=== PATIENT | female | born 1945 | race African-American/Black ===

== ENCOUNTER 2016-12-22 12:47 | Emergency (ER) | payer MEDICARE ==
[~2016-12-22] VITALS: Ht 165.1 cm; Wt 60.0 kg
[~2016-12-22 12:47] MED LIST: ROBITUSSIN DM 105 ML PO; VENTOLIN0.09 MG IH; ZITHROMAX Z PA250 MG PO; ZYRTEC 10MG10 MG PO
[2016-12-22 12:53] VITALS: TEMP 97.6
[2016-12-22 13:52] LABS: BASO # 0.1 (0.0-0.2); BASO % 1.6 % (0.0-2.0); EOS # 0.1 (0.0-0.7); EOS % 1.1 % (0-4.0); GRAN % 64.3 % (42.2-75.2); LYMPH # 1.7 (1.2-3.4); LYMPH % 26.9 % (20.0-51.0); MEAN CELL VOLUME 86 fl (80.0-100.0); MEAN CORPUSCULAR HGB CONC 32 g/dl (33.0-37.0); MEAN PLATELET VOLUME 10.4 fl (7.4-10.4); MONO # 0.4 (0.1-0.6); MONO % 5.8 % (1.7-9.3); PLATELET COUNT 289 K/mm3 (130-400); RED BLOOD COUNT 4.02 M/mm3 (4.10-5.30); REDCELL DISTRIBUTION WIDTH-CV 13.5 % (11.5-14.5); WHITE BLOOD COUNT 6.2 K/mm3 (4.8-10.8)
[2016-12-22 13:53] LABS: HEMATOCRIT 34.6 % (37.0-47.0); MEAN CORPUSCULAR HEMOGLOBIN 27 pg (27.0-31.0)
[2016-12-22 13:55] LABS: INR 1.2 (0.8-3.0); PROTHROMBIN TIME 13.7 SECONDS (9.7-12.8)
[2016-12-22 14:03] LABS: ADJUSTED CALCIUM 11.1 mg/dL (8.4-10.2); ALBUMIN 4.1 gm/dL (3.5-5.0); BILIRUBIN,TOTAL 0.8 mg/dL (0.0-1.0); CALCIUM 11.2 mg/dL (8.4-10.2); CREATININE, serum 0.97 mg/dL (0.52-1.25); POTASSIUM 4.6 mmol/L (3.4-5.0)
[2016-12-22 14:14] LABS: TROPONIN-I 0.025 ng/mL (0.000-0.034)
[2016-12-22 14:16] LABS: PH 7 (5-8); SQUAMOUS EPITHELIAL 0-2 /hpf; URINE APPEARANCE Clear; URINE BACTERIA None Seen /hpf; URINE BILIRUBIN Negative (NEGATIVE); URINE BLOOD Negative (NEGATIVE); URINE COLOR Yellow; URINE GLUCOSE Negative (NEGATIVE); URINE KETONE Trace (NEGATIVE); URINE UROBILINOGEN >=4.0 mg/dL (NEGATIVE); URINE WBC 0-2 /hpf
[2016-12-22] MEDS ORDERED: PROAIR HFA0.09 MG/AC IH (16:54)
[2016-12-22] MEDS ORDERED: ASPIRIN 32325 MG/TAB PO (16:54)
[2016-12-22] MEDS ORDERED: EPA FISH OIL1 SGL PO (16:55)
[2016-12-22] MEDS ORDERED: ZYRTEC 10MG10 MG PO (16:55)
[2016-12-22] MEDS ORDERED: FLONASEALLERGY NS (16:56)
[2016-12-22] MEDS ORDERED: SYNTHROID 0.0.025 MG PO (16:58)
[2016-12-22] MEDS ORDERED: MULTI VITAMINS1 TAB PO (16:59)
[2016-12-22] MEDS ORDERED: LOPRESSOR 225 MG/TAB PO (16:59)
[2016-12-22 17:00] VITALS: BP 171/91; PULSE 93
[2016-12-22] MEDS ORDERED: NICORETTE2 M1 PO (17:00)
[2016-12-22] MEDS ORDERED: NYSTATIN OR100 MU/ML PO (17:00)
[2016-12-22] MEDS ORDERED: PRIL40 PO (17:03)
[2016-12-22] MEDS ORDERED: DIOVAN/HCT 12.51 TA1 PO (17:04)
[2016-12-22] MEDS ORDERED: ZOCOR 40MG40 MG PO (17:04)
== END 2016-12-22 17:25 | disposition home or self-care (01) ==
LOC: COL.ER 12:47
PROVIDERS: Emergency Medicine
DX: R53.1 Weakness (principal); R06.02 Shortness of breath; R55 Syncope and collapse; I10 Essential (primary) hypertension; I69.954 Hemiplegia and hemiparesis following unspecified cerebrovascular disease affecting left non-dominant side; F17.200 Nicotine dependence, unspecified, uncomplicated; F03.90 Unspecified dementia, unspecified severity, without behavioral disturbance, psychotic disturbance, mood disturbance, and anxiety; E78.5 Hyperlipidemia, unspecified